=== PATIENT | female | born 2000 | race Two or more races ===

== ENCOUNTER 2020-07-16 07:04 | Emergency (ER) | payer SELFPAY ==
[~2020-07-16] VITALS: Ht 154.9 cm; Wt 88.0 kg
[2020-07-16] MEDS ORDERED: ONDANSETRON PF 4 MG/2 ML VIAL. IVP ONE (07:30)
[2020-07-16] MEDS ORDERED: MORPHINE SULFATE 2 MG/ML VIAL. IV ONE (07:30)
[2020-07-16] MEDS ORDERED: IV NORMAL SALINE 1000ML BAG 1,000 ML IV SCH (07:30)
--- NOTE | 2020-07-16 07:30 | PHYS DOC ---
General Adult EDM: Chief Complaint: ABDOMINAL PAIN HPI: HPI: Patient is a 20 year old female who presented to ER today for evaluation right side abdominal pain that been going on for a week. Patient denies any nausea or vomiting, no fever. Patient denies any pelvic pain, no vaginal bleeding or discharge. Patient had no previous history of kidney stones or gallbladder problem. Nothing makes the pain worse or better. Review of Systems: Review of Systems: Constitutional: Denies fever or chills. [] Eyes: Denies change in visual acuity. [] HENT: Denies nasal congestion or sore throat. [] Respiratory: Denies cough or shortness of breath. [] Cardiovascular: Denies chest pain or edema. [] GI: Positive for abdominal pain, no nausea , no vomiting, no diarrhea : Denies dysuria. [] Musculoskeletal: Denies back pain or joint pain. [] Integument: Denies rash. [] Neurologic: Denies headache, focal weakness or sensory changes. [] Endocrine: Denies polyuria or polydipsia. [] Lymphatic: Denies swollen glands. [] Psychiatric: Denies depression or anxiety. [] Heart Score: Risk Factors: Risk Factors: DM, Current or recent (<one month) smoker, HTN, HLP, family history of CAD, obesity. Risk Scores: Score 0 - 3: 2.5% MACE over next 6 weeks - Discharge Home Score 4 - 6: 20.3% MACE over next 6 weeks - Admit for Clinical Observation Score 7 - 10: 72.7% MACE over next 6 weeks - Early Invasive Strategies Current Medications: Current Medications Medications (Trade) Dose Ordered Sig/[facility] Start Time Stop Time Status Last Admin Dose Admin Morphine Sulfate (Morphine Sulfate) 2 mg 1X ONCE 07/16/20 07:30 07/16/20 07:31 UNV Ondansetron HCl (Zofran) 4 mg 1X ONCE 07/16/20 07:30 07/16/20 07:31 UNV Sodium Chloride 1,000 ml @ 1,000 mls/hr Q1H 07/16/20 07:30 07/16/20 08:29 UNV Physical Exam: PE: Constitutional: Well developed, well nourished, no acute distress, non-toxic appearance. [] HENT: Normocephalic, atraumatic, bilateral external ears normal, oropharynx moist, no oral exudates, nose normal. [] Eyes: PERRLA, EOMI, conjunctiva normal, no discharge. [] Neck: Normal range of motion, no tenderness, supple, no stridor. [] Cardiovascular:Heart rate regular rhythm, no murmur [] Lungs & Thorax: Bilateral breath sounds clear to auscultation [] Abdomen: Bowel sounds normal, soft, There is tenderness to palpation in RLQ, Right flank, no masses, no pulsatile masses. [] Skin: Warm, dry, no erythema, no rash. [] Back: No tenderness, no CVA tenderness. [] Extremities: No tenderness, no cyanosis, no clubbing, ROM intact, no edema. [] Neurologic: Alert and oriented X 3, normal motor function, normal sensory function, no focal deficits noted. [] Psychologic: Affect normal, judgement normal, mood normal. [] Current Patient Data: Labs: Laboratory Tests Test 07/16/20 07:24 07/16/20 07:29 White Blood Count 10.8 x10^3/uL Red Blood Count 4.66 x10^6/uL Hemoglobin 13.3 g/dL Hematocrit 39.5 % Mean Corpuscular Volume 85 fL Mean Corpuscular Hemoglobin 29 pg Mean Corpuscular Hemoglobin Concent 34 g/dL Red Cell Distribution Width 13.7 % Platelet Count 321 x10^3/uL Neutrophils (%) (Auto) 52 % Lymphocytes (%) (Auto) 41 % Monocytes (%) (Auto) 4 % Eosinophils (%) (Auto) 3 % Basophils (%) (Auto) 1 % Neutrophils # (Auto) 5.6 x10^3/uL Lymphocytes # (Auto) 4.4 x10^3/uL Monocytes # (Auto) 0.4 x10^3/uL Eosinophils # (Auto) 0.4 x10^3/uL Basophils # (Auto) 0.1 x10^3/uL Urine Collection Type Void Urine Color Yellow Urine Clarity Clear Urine pH 6.5 Urine Specific [place] 1.025 Urine Protein Negative mg/dL Urine Glucose (UA) Negative mg/dL Urine Ketones (Stick) Negative mg/dL Urine Blood Negative Urine Nitrite Negative Urine Bilirubin Negative Urine Urobilinogen Dipstick 0.2 mg/dL Urine Leukocyte Esterase Small Urine RBC 0 /HPF Urine WBC 5-10 /HPF Urine Squamous Epithelial Cells Mod /LPF Urine Bacteria Few /HPF Urine Mucus Mod /LPF Sodium Level 138 mmol/L Potassium Level 3.9 mmol/L Chloride Level 103 mmol/L Carbon Dioxide Level 24 mmol/L Anion Gap 11 Blood Urea Nitrogen 13 mg/dL Creatinine 0.9 mg/dL Estimated GFR (Cockcroft-Gault) 79.0 BUN/Creatinine Ratio 14 Glucose Level 118 mg/dL Calcium Level 9.0 mg/dL Total Bilirubin 0.2 mg/dL Aspartate Amino Transf (AST/SGOT) 41 U/L Alanine Aminotransferase (ALT/SGPT) 121 U/L Alkaline Phosphatase 113 U/L Total Protein 7.2 g/dL Albumin 3.6 g/dL Albumin/Globulin Ratio 1.0 Lipase 114 U/L Bedside Urine HCG, Qualitative Hcg negative Current Medications Medications (Trade) Dose Ordered Sig/[place] Route PRN Reason Start Time Stop Time Status Last Admin Dose Admin Sodium Chloride 1,000 ml @ 1,000 mls/hr Q1H IV 07/16/20 07:30 07/16/20 08:29 DC 07/16/20 07:40 Ondansetron HCl (Zofran) 4 mg 1X ONCE IVP 07/16/20 07:30 07/16/20 07:31 DC 07/16/20 07:40 Morphine Sulfate (Morphine Sulfate) 2 mg 1X ONCE IV 07/16/20 07:30 07/16/20 07:31 DC 07/16/20 07:40 EKG: EKG: [] Radiology/Procedures: Radiology/Procedures: [][facility] [address] [place], [place] [id number] IMAGING REPORT Signed PATIENT: FELICE SZYMANSKIACCOUNT: [id number] : 2000 LOCATION: ER AGE: 20 SEX: F EXAM STATUS: REG ER ORD. PHYSICIAN: JEANNETTE HOWARD DO REASON: RUQ abdominal pain PROCEDURE: ABDOMEN LTD Examination: Ultrasound abdomen limited HISTORY: History of right upper quadrant abdominal pain COMPARISON: None available FINDINGS: The pancreas, aorta, IVC are not well-visualized due to bowel gas. Questionable mild increased echogenicity identified in the liver likely mild hepatic steatosis. No evidence of gallstones. The common bile duct measures 3.4 mm in transverse dimension. The right kidney measures 13.2 x 5.2 x 4.4 cm. IMPRESSION: 1. Probable mild hepatic steatosis. Electronically signed by: Lico Wiley MD (07/16/2020 8:50 AM) [id number] DICTATED and SIGNED BY: LICO WILEY MD DATE: 07/16/20 [id number] [facility] [address] [place] [address] IMAGING REPORT Signed PATIENT: FELICE SZYMANSKIACCOUNT: [id number] : 2000 LOCATION: ER AGE: 20 SEX: F EXAM STATUS: REG ER ORD. PHYSICIAN: JEANNETTE HOWARD DO REASON: right side abdominal pain for a week PROCEDURE: CT ABD PELV W/ IV CONTRST ONLY CT ABDOMEN+PELVIS W History: Reason: right side abdominal pain for a week / Spl. Instructions: omni 300 75ml / History: Comparison: None. Technique: After administration of intravenous contrast, helical CT of the abdomen and pelvis was performed from the lung bases through the ischial tuber osities. Coronal and sagittal reconstructions were obtained. 75 mL of Omnipaque 300 were used. One or more of the following dose reduction techniques were utilized: Automated exposure control (AEC), Adjustment of mA and/or kV according to patient size, Use of iterative reconstruction technique such as ASiR, CT scan done according to ALARA and image gently/image wisely Abdomen Findings: The visualized lung bases are clear. Liver measures 20.5 cm craniocaudad. Hepatic steatosis. gallbladder, pancreas, spleen, and bilateral adrenal glands are normal. Symmetric renal enhancement. There is no focal renal mass. There is no hydronephrosis. The visualized loops of small bowel are normal. The visualized loops of large bowel are normal. There is no evidence of bowel obstruction. Appendix is normal. Circumscribed low-attenuation structure posterior to the right hepatic lobe with curvilinear peripheral calcification measuring 3.1 x 1.6 x 2.1 cm (AP by TV by CC) (series 2 image 31). Structure abuts the abdominal wall between the right posterior 10th and 11th rib interspace, possibly within the posterior pararenal space. There is no mesenteric or retroperitoneal adenopathy. The abdominal aorta is normal in caliber. Pelvis Findings: Urinary bladder is normal. Uterus is present. No pelvic free fluid. There is no pelvic or inguinal adenopathy. There is no acute bony abnormality. IMPRESSION: 1. No acute findings. 2. Low-attenuation 3.1 cm circumscribed structure between the liver and posterior abdominal wall, nonspecific but considerations would include chronic hematoma, lymphocele, or extrathoracic solitary fibrous tumor. Comparison with prior imaging would be helpful if available, or 3-6 month follow-up to assess stability. 3. Hepatomegaly and hepatic steatosis. Electronically signed by: Nam Tran MD (07/16/2020 10:07 AM) [id number] DICTATED and SIGNED BY: NAM TRAN MD DATE: 07/16/20 [id number] Course & Med Decision Making: Course & Med Decision Making Pertinent Labs and Imaging studies reviewed. (See chart for details) Patient is a 20-year-old female who presented to ER for evaluation of right abdominal pain off and on for 1 week. Ultrasound of her gallbladder, right upper quadrant, showed no gallstones, showed hepatic infiltration. CT scan of her abdomen pelvic did not show any acute problem process. Patient lab work did not show any acute problem. Patient will be discharged home, she will need to follow-up with her family physician for further evaluation and treatment. Her pain today is most likely due to the fatty liver. [place] Disclaimer: Fitz Disclaimer: This electronic medical record was generated, in whole or in part, using a voice recognition dictation system. Departure Departure Impression: Primary Impression: Abdominal pain Disposition: 01 DC HOME SELF CARE/HOMELESS Condition: STABLE Referrals: NO PCP (PCP) Patient Instructions: Abdominal Pain Additional Instructions: Thank you for visiting our Emergency Department. We appreciate you trusting us with your care. If any additional problems come up don't hesitate to return to visit us. Please follow up with your primary care provider so they can plan additional care if needed and know about the problem that you had. If symptoms worsen come back to the Emergency Department. Any concerning symptoms that start such as chest pain, shortness of air, weakness or numbness on one side of the body, running high fevers or any other concerning symptoms return to the ER. Scripts Naproxen Sodium (ANAPROX DS) 550 Mg Tablet 1 TAB PO BID PRN for PAIN for 15 Days, #30 TAB 0 Refills Prov: JEANNETTE HOWARD DO 07/16/20 JEANNETTE HOWARD DO Jul 16, 2020 07:30
[2020-07-16 07:42] LABS: CREATININE 0.9 mg/dL (0.6-1.0); POTASSIUM 3.9 mmol/L (3.5-5.1)
[2020-07-16 07:47] LABS: BILIRUBIN,URINE NEGATIVE (NEG); CLARITY,URINE CLEAR; COLOR,URINE YELLOW; NITRITE,URINE NEGATIVE (NEG); PH,URINE 6.5 (<5.0-8.0); PROTEIN,URINE NEGATIVE (NEG-TRACE); UROBILINOGEN,URINE 0.2 mg/dL (0.2 mg/dL)
[2020-07-16 07:52] LABS: ALBUMIN 3.6 g/dL (3.4-5.0); TOTAL BILIRUBIN 0.2 mg/dL (0.2-1.0); TOTAL PROTEIN 7.2 g/dL (6.4-8.2)
[2020-07-16 07:57] LABS: BASO # 0.1 x10^3/uL (0.0-0.2); BASO % 1 % (0-3); EOS # 0.4 x10^3/uL (0.0-0.7); EOS % 3 % (0-3); HEMATOCRIT 39.5 % (36.0-47.0); HEMOGLOBIN 13.3 g/dL (12.0-15.5); LYMPH # 4.4 x10^3/uL (1.0-4.8); LYMPH % 41 % (24-48); MEAN CORPUSCULAR HEMOGLOBIN 29 pg (25-35); MEAN CORPUSCULAR HGB CONC 34 g/dL (31-37); MEAN CORPUSCULAR VOLUME 85 fL (79-100); MONO # 0.4 x10^3/uL (0.0-1.1); MONO % 4 % (0-9); NEUT # 5.6 x10^3/uL (1.8-7.7); NEUT % 52 % (31-73); PLATELET COUNT 321 x10^3/uL (140-400); RED BLOOD COUNT 4.66 x10^6/uL (3.50-5.40); RED CELL DISTRIBUTION WIDTH 13.7 % (11.5-14.5); WHITE BLOOD COUNT 10.8 x10^3/uL (4.0-11.0)
[2020-07-16 07:58] LABS: BACTERIA,URINE FEW /HPF (0-FEW); RBC,URINE 0 /HPF (0-2)
--- NOTE | 2020-07-16 08:53 | RAD ---
Examination: Ultrasound abdomen limited HISTORY: History of right upper quadrant abdominal pain COMPARISON: None available FINDINGS: The pancreas, aorta, IVC are not well-visualized due to bowel gas. Questionable mild increased echoge nicity identified in the liver likely mild hepatic steatosis. No evidence of gallstones. The common b ile duct measures 3.4 mm in transverse dimension. The right kidney measures 13.2 x 5.2 x 4.4 cm. IMPRESSION: 1. Probable mild hepatic steatosis. Electronically signed by: Lico Wiley MD (07/16/2020 8:50 AM) [id number]
[2020-07-16 09:26] VITALS: BP 125/67
[2020-07-16] MEDS ORDERED: CONTRAST GIVEN. MC PRN (09:30)
[2020-07-16] MEDS ORDERED: IOHEXOL 300 MG/ML 100ML VIAL. IV ONE (09:30)
--- NOTE | 2020-07-16 10:10 | RAD ---
CT ABDOMEN+PELVIS W History: Reason: right side abdominal pain for a week / Spl. Instructions: omni 300 75ml / History: Comparison: None. Technique: After administration of intravenous contrast, helical CT of the abdomen and pelvis was per formed from the lung bases through the ischial tuberosities. Coronal and sagittal reconstructions wer e obtained. 75 mL of Omnipaque 300 were used. One or more of the following dose reduction techniques were utilized: Automated exposure control (AEC), Adjustment of mA and/or kV according to patient size , Use of iterative reconstruction technique such as ASiR, CT scan done according to ALARA and image g ently/image wisely Abdomen Findings: The visualized lung bases are clear. Liver measures 20.5 cm craniocaudad. Hepatic steatosis. gallbladder, pancreas, spleen, and bilateral adrenal glands are normal. Symmetric renal enhancement. There is no focal renal mass. There is no hydronephrosis. The visualized loops of small bowel are normal. The visualized loops of large bowel are normal. There is no evidence of bowel obstruction. Appendix is normal. Circumscribed low-attenuation structure posterior to the right hepatic lobe with curvilinear peripher al calcification measuring 3.1 x 1.6 x 2.1 cm (AP by TV by CC) (series 2 image 31). Structure abuts t he abdominal wall between the right posterior 10th and 11th rib interspace, possibly within the poste rior pararenal space. There is no mesenteric or retroperitoneal adenopathy. The abdominal aorta is normal in caliber. Pelvis Findings: Urinary bladder is normal. Uterus is present. No pelvic free fluid. There is no pelvic or inguinal ad enopathy. There is no acute bony abnormality. IMPRESSION: 1. No acute findings. 2. Low-attenuation 3.1 cm circumscribed structure between the liver and posterior abdominal wall, non specific but considerations would include chronic hematoma, lymphocele, or extrathoracic solitary fib jesus tumor. Comparison with prior imaging would be helpful if available, or 3-6 month follow-up to as sess stability. 3. Hepatomegaly and hepatic steatosis. Electronically signed by: Moises Tran MD (07/16/2020 10:07 AM) [id number]
[2020-07-16] MEDS ORDERED: NAPR-682 PO (11:05)
== END 2020-07-16 11:17 | disposition home or self-care (01) ==
LOC: ER 07:04
DX: R10.31 Right lower quadrant pain (principal)
CPT/HCPCS: 36415; 74177; 76705; 80053; 81001; 81025; 83690; 85025; 87086; 96361; 96374; 96375; 99285; J2270; J2405; J7030